=== PATIENT | female | born 1965 | race Caucasian/White ===

== ENCOUNTER 2019-07-31 10:53 | Emergency (ER) | payer MEDICAID, OTHER ==
[~2019-07-31] VITALS: Ht 172.7 cm; Wt 168.0 kg
[~2019-07-31 10:53] MED LIST: CHLO25TA2 PO; LEVO75TA PO; LISI-600 PO; ROSU5TAB12
[2019-07-31 11:53] LABS: BASOPHILS % (AUTO) 0.4 % (0-1); EOSINOPHILS # (AUTO) 0.1 X10'3 (0-0.9); EOSINOPHILS % (AUTO) 1.4 % (0-6); HEMATOCRIT 45.2 % (35.0-45.0); HEMOGLOBIN 15.3 g/dl (12.0-16.0); LYMPHOCYTES # (AUTO) 2.4 X10'3 (1.1-4.8); MEAN CORPUSCULAR HEMOGLOBIN 29.5 PG (27.0-31.0); MEAN CORPUSCULAR HGB CONC 33.9 g/dL (33.0-36.5); MEAN CORPUSCULAR VOLUME 86.9 FL (78-98); MEAN PLATELET VOLUME 8.1 FL (7.4-10.4); MONOCYTES # (AUTO) 0.4 X10'3 (0-0.9); MONOCYTES % (AUTO) 6.3 % (2-12); NEUTROPHILS # (AUTO) 3.3 X10'3 (1.8-7.7); NEUTROPHILS % (AUTO) 52.9 % (42-75); PLATELET COUNT 253 X10'3 (140-440); WHITE BLOOD COUNT 6.3 X10'3 (4.5-11.0)
[2019-07-31 12:15] LABS: ALANINE AMINOTRANSFERASE 50 U/L (12-78); ALBUMIN/GLOBULIN RATIO 0.9 (1.1-1.5); ALKALINE PHOSPHATASE 108 IU/L (46-116); ANION GAP 9 (8-16); ASPARTATE AMINO TRANSFERASE 31 U/L (10-37); BILIRUBIN,TOTAL 0.4 MG/DL (0.1-1.0); BLOOD UREA NITROGEN 15 MG/DL (7-18); BUN/CREATININE RATIO 14.4 (6.6-38.0); CALCIUM 9.7 MG/DL (8.5-10.1); CHLORIDE 106 MMOL/L (99-107); CREATININE 1.04 MG/DL (0.40-0.90); GLUCOSE 113 MG/DL (70-104); POTASSIUM 4.2 MMOL/L (3.5-5.1); SODIUM 142 MMOL/L (135-145); TOTAL CARBON DIOXIDE 27.5 MMOL/L (24-32); TOTAL PROTEIN 8.3 G/DL (6.4-8.2); eGFR 55 ML/MIN
[2019-07-31] MEDS ORDERED: diphenhydrAMINE 50 mg/ml inj IV ONE (12:40)
[2019-07-31] MEDS ORDERED: proCHLORperazine 10 MG/2 ml inj IV ONE (12:40)
[2019-07-31] MEDS ORDERED: cloNIDine 0.1 mg tablet PO ONE (12:45)
[2019-07-31 14:46] LABS: CLARITY,URINE CLEAR (Clear); COLOR,URINE YELLOW (Yellow); GLUCOSE, URINE NEGATIVE (Neg); KETONES,URINE NEGATIVE (Neg); LEUKOCYTE ESTERASE ,URINE NEGATIVE (Neg); NITRITES, URINE NEGATIVE (Neg); OCCULT BLOOD,URINE NEGATIVE (Neg); PROTEIN,URINE NEGATIVE (Neg); UROBILINOGEN,URINE 0.2 E.U/dL (0.2-1.0)
[2019-07-31 14:49] LABS: UA COLLECTION TYPE CLN CATCH MIDSTREAM
[2019-07-31 15:12] VITALS: BP 139/96
== END 2019-07-31 15:14 | disposition home or self-care (01) ==
LOC: ER 10:54
DX: I10 Essential (primary) hypertension (principal); G43.909 Migraine, unspecified, not intractable, without status migrainosus; R42 Dizziness and giddiness; E78.00 Pure hypercholesterolemia, unspecified; Z90.49 Acquired absence of other specified parts of digestive tract; Z98.890 Other specified postprocedural states; Z88.0 Allergy status to penicillin; Z79.899 Other long term (current) drug therapy
CPT/HCPCS: 36415; 71045; 80053; 81003; 83735; 83880; 84484; 85025; 93005; 96374; 96375; 99284; J0780; J1200

== ENCOUNTER 2021-03-15 08:53 | Day surgery (SDC) | payer BC, MEDICAID ==
[~2021-03-15] VITALS: Ht 172.7 cm; Wt 171.8 kg
[~2021-03-15 08:53] MED LIST changes: -LISI-600 PO; +LISI20TA28 PO
[2021-03-15] MEDS ORDERED: LIDOcaine Viscous 15ml cup ONE (08:57)
[2021-03-15] MEDS ORDERED: MIDAZolam 1 MG/ML 5ML VIAL ONE (08:57)
[2021-03-15] MEDS ORDERED: fentaNYL/PF 50MCG/1 ML 2ML syringe ONE (08:57)
[2021-03-15 09:10] VITALS: BP 124/76
[2021-03-15] MEDS ORDERED: LISD20CA PO (09:15)
[2021-03-15] MEDS ORDERED: VIT D3 PO (09:17)
[2021-03-15 09:59] VITALS: BP 108/69
[2021-03-15 10:09] VITALS: BP 104/67
[2021-03-15 10:19] VITALS: BP 100/62
[2021-03-15 10:29] VITALS: BP 108/64
== END 2021-03-15 10:50 | disposition home or self-care (01) ==
LOC: GI LAB 08:53
PROVIDERS: ATTEND Internal Medicine Gastroenterology
DX: Z01.818 Encounter for other preprocedural examination (principal); K29.50 Unspecified chronic gastritis without bleeding; E66.01 Morbid (severe) obesity due to excess calories; Z68.43 Body mass index [BMI] 50.0-59.9, adult; J45.909 Unspecified asthma, uncomplicated; I10 Essential (primary) hypertension; Z88.0 Allergy status to penicillin; Z79.899 Other long term (current) drug therapy
CPT/HCPCS: 43239; 99152; J2250; J3010; J7040; A4620

== ENCOUNTER 2023-05-19 08:50 | Emergency (ER) | payer BC, MEDICAID ==
[~2023-05-19] VITALS: Ht 172.7 cm; Wt 96.4 kg
[~2023-05-19 08:50] MED LIST changes: +LISD20CA PO; +VIT D3 PO
[2023-05-19 09:17] LABS: BILIRUBIN,URINE NEGATIVE (Neg); CLARITY,URINE SLIGHTLY CLOUDY (Clear); COLOR,URINE YELLOW (Yellow); GLUCOSE, URINE NEGATIVE (Neg); KETONES,URINE TRACE mg/dl (Neg); LEUKOCYTE ESTERASE ,URINE TRACE (Neg); NITRITES, URINE NEGATIVE (Neg); OCCULT BLOOD,URINE SMALL (Neg); PROTEIN,URINE TRACE mg/dl (Neg); URINE HCG NEGATIVE (NEG)
[2023-05-19 09:20] LABS: UA COLLECTION TYPE CLN CATCH MIDSTREAM
[2023-05-19 09:21] LABS: BACTERIA,URINE 1+ /HPF (Neg); MUCUS STRANDS NONE SEEN /LPF (Neg); RBC,URINE 0-2 /HPF (0-2); SQUAMOUS EPITHELIAL CELL,UR FEW /LPF (FEW); WBC,URINE 0-4 /HPF (0-4)
[2023-05-19 09:24] VITALS: BP 127/76; PULSE 82; RESP 18; TEMP 98.3; O2SAT 95
[2023-05-19 09:48] LABS: BASOPHILS % (AUTO) 0.4 % (0-1); EOSINOPHILS % (AUTO) 0.4 % (0-6); HEMATOCRIT 43.1 % (35.0-45.0); HEMOGLOBIN 14.4 g/dl (12.0-16.0); LYMPHOCYTES # (AUTO) 1.8 X10'3 (1.1-4.8); MEAN CORPUSCULAR HEMOGLOBIN 29.7 PG (27.0-31.0); MEAN CORPUSCULAR HGB CONC 33.5 g/dL (33.0-36.5); MEAN CORPUSCULAR VOLUME 88.5 FL (78-98); MONOCYTES # (AUTO) 0.3 X10'3 (0-0.9); MONOCYTES % (AUTO) 6.2 % (2-12); NEUTROPHILS # (AUTO) 3.3 X10'3 (1.8-7.7); PLATELET COUNT 223 X10'3 (140-440); RED BLOOD COUNT 4.86 X10'6 (4.20-5.60); RED CELL DISTRIBUTION WIDTH 12.8 % (11.5-14.5); WHITE BLOOD COUNT 5.5 X10'3 (4.5-11.0)
[2023-05-19 10:04] LABS: ALANINE AMINOTRANSFERASE 17 U/L (12-78); ALBUMIN 3.7 G/DL (3.4-5.0); ALBUMIN/GLOBULIN RATIO 1.1 (1.1-1.5); ALKALINE PHOSPHATASE 84 IU/L (46-116); ANION GAP 7 (8-16); ASPARTATE AMINO TRANSFERASE 15 U/L (10-37); BILIRUBIN,TOTAL 0.3 MG/DL (0.1-1.0); BLOOD UREA NITROGEN 19 MG/DL (7-18); CHLORIDE 107 MMOL/L (99-107); GLUCOSE 80 MG/DL (70-104); LIPASE 160 U/L (73-393); POTASSIUM 4.4 MMOL/L (3.5-5.1); SODIUM 143 MMOL/L (135-145); TOTAL CARBON DIOXIDE 29.3 MMOL/L (24-32); eCRCL 62 ML/MIN; eGFR 57 ML/MIN
[2023-05-19 10:11] LABS: CALCIUM 9.1 MG/DL (8.5-10.1)
[2023-05-19] MEDS ORDERED: CEFD300C3 PO (10:26)
== END 2023-05-19 10:51 | disposition home or self-care (01) ==
LOC: ER 08:50
DX: N39.0 Urinary tract infection, site not specified (principal); G43.909 Migraine, unspecified, not intractable, without status migrainosus; E78.00 Pure hypercholesterolemia, unspecified; I10 Essential (primary) hypertension; Z90.49 Acquired absence of other specified parts of digestive tract; Z98.891 History of uterine scar from previous surgery; Z88.0 Allergy status to penicillin; Z79.899 Other long term (current) drug therapy
CPT/HCPCS: 36415; 80053; 81001; 81025; 83690; 85025; 87088; 99283

== ENCOUNTER 2023-08-22 06:15 | Inpatient (IN) | payer BC, MEDICAID ==
[2023-08-18 11:57] LABS: BILIRUBIN,URINE NEGATIVE (Neg); CLARITY,URINE CLEAR (Clear); COLOR,URINE YELLOW (Yellow); GLUCOSE, URINE NEGATIVE (Neg); KETONES,URINE NEGATIVE (Neg); LEUKOCYTE ESTERASE ,URINE NEGATIVE (Neg); NITRITES, URINE NEGATIVE (Neg); OCCULT BLOOD,URINE NEGATIVE (Neg); PH,URINE 7.5 (4.8-8.0); PROTEIN,URINE NEGATIVE (Neg); UROBILINOGEN,URINE 0.2 E.U/dL (0.2-1.0)
[2023-08-18 12:10] LABS: UA COLLECTION TYPE CLN CATCH MIDSTREAM
[2023-08-18 12:37] LABS: BASOPHILS % (AUTO) 0.7 % (0-1); EOSINOPHILS % (AUTO) 0.5 % (0-6); LYMPHOCYTES # (AUTO) 2.1 X10'3 (1.1-4.8); LYMPHOCYTES % (AUTO) 43.3 % (21-51); MEAN CORPUSCULAR HEMOGLOBIN 28.9 PG (27.0-31.0); MEAN CORPUSCULAR HGB CONC 33.1 g/dL (33.0-36.5); MEAN CORPUSCULAR VOLUME 87.4 FL (78-98); MONOCYTES # (AUTO) 0.3 X10'3 (0-0.9); MONOCYTES % (AUTO) 5.9 % (2-12); NEUTROPHILS # (AUTO) 2.4 X10'3 (1.8-7.7); NEUTROPHILS % (AUTO) 49.6 % (42-75); PRE OP HEMATOCRIT 44.4 % (35.0-45.0); PRE OP HEMOGLOBIN 14.7 g/dL (12.0-16.0); PRE OP PLATELET COUNT 249 X10'3 (140-440); PRE OP WHITE BLOOD COUNT 4.8 10'3 (4.8-10.8); RED BLOOD COUNT 5.09 X10'6 (4.20-5.60); RED CELL DISTRIBUTION WIDTH 12.9 % (11.5-14.5)
[2023-08-18 13:00] LABS: ALBUMIN 3.9 G/DL (3.4-5.0); ALBUMIN/GLOBULIN RATIO 1.1 (1.1-1.5); ALKALINE PHOSPHATASE 82 IU/L (46-116); BLOOD UREA NITROGEN 10 MG/DL (7-18); BUN/CREATININE RATIO 10.8 (10.0-20.0); CALCIUM 9.3 MG/DL (8.5-10.1); CHLORIDE 104 MMOL/L (99-107); CREATININE 0.93 MG/DL (0.40-0.90); PRE OP ALT 21 U/L (30-65); PRE OP ANION GAP 7 (8-16); PRE OP AST 18 U/L (10-37); PRE OP BILIRUB, TOTAL 0.4 MG/DL (0.0-1.0); PRE OP GLUCOSE 92 MG/DL (70-104); PRE OP POTASSIUM 3.5 MMOL/L (3.4-5.1); PRE OP SODIUM 139 MMOL/L (135-145); THYROID STIMULATING HORMONE 2.87 ulU/ml (0.34-4.50); TOTAL CARBON DIOXIDE 27.9 MMOL/L (24-32); TOTAL PROTEIN 7.3 G/DL (6.4-8.2); eGFR 62 ML/MIN
[2023-08-18 13:11] LABS: PRE OP PROTIME 10.4 SECONDS (9.0-12.0)
[2023-08-22] VITALS (16 sets, daily range): BP systolic 87–131; BP diastolic 53–91; PULSE 63–85; RESP 10–18; TEMP 96.2–98; O2SAT 76–100
[~2023-08-22] VITALS: Ht 172.7 cm; Wt 105.7 kg
[~2023-08-22 06:15] MED LIST changes: +AMPH10TA23 PO; +BUPR-317 PO; +BUPR300T86 PO; -CHLO25TA2 PO; +CHOL500044 PO; +LEVO100T9 PO; -LEVO75TA PO; -LISD20CA PO; +LISD70CA PO; -LISI20TA28 PO; +MAGN400T56 PO; +MULT-955 PO; -ROSU5TAB12; +TIZA-205 PO; -VIT D3 PO; +clindamycin-Cleocin 900mg/D5W 50 ML IV ONE; +famotidine 20mg tablet PO ONE; +ringers solution, lacted 1,000 ML IV SCH
[2023-08-22] MEDS ORDERED: BUPIVACAINE liposomal/PF 13.3 MG/ML vial IM ONE (06:41)
[2023-08-22] MEDS ORDERED: BUPIVAcaine/PF 2.5mg/ml (0.25%) 10ml vial ONE (06:41)
[2023-08-22] MEDS ORDERED: fentaNYL /PF 50mcg/ml 5ml ampule ONE (08:06)
[2023-08-22] MEDS ORDERED: MIDAZolam 1 MG/ML 5ML VIAL ONE (08:07)
[2023-08-22] MEDS ORDERED: propofol inj 20 ML IV ONE (08:07)
[2023-08-22] MEDS ORDERED: rocuronium 10mg/ml inj IV ONE ×2 (08:08→11:57)
[2023-08-22] MEDS ORDERED: LIDOcaine 2% (20mg/ml) 5ml vial ONE (08:28)
[2023-08-22] MEDS ORDERED: sevoflurane 250ml liquid IH ONE (08:28)
[2023-08-22] MEDS ORDERED: NORepinephrine 8 MG in NS 250 ML BAG (32 mcg/ml) IV ONE (08:28)
[2023-08-22 09:15] LABS: ABG BASE EXCESS 1.7 mmol/L (-2.0-2.0); ABG HCO3 26.4 mmol/L (22.0-26.0); ABG OXYGEN SATURATION 87.8 % (94-97); ABG PCO2 (T) 41.7 mmHg (32.0-45.0); ABG PH (T) 7.419 (7.350-7.450); ABG PO2 (T) 51.9 mmHg (75.0-100.0); FCOHb 0.6 % (0.0-3.9); FHHb 12.1 % (0.0-5.0); FMetHb 0.3 % (0.0-1.5); MODE ROOM AIR; TOTAL HEMOGLOBIN 14.3 G/dl (12.0-16.0)
[2023-08-22] MEDS ORDERED: INDOCYANINE GREEN 25 MG/10 ML VIAL IV ONE (10:40)
[2023-08-22] MEDS ORDERED: ondansetron/PF 4mg/2ml inj ONE (11:57)
[2023-08-22] MEDS ORDERED: dexamethasone sod phosphate 4mg/ml inj. ONE (11:57)
[2023-08-22] MEDS ORDERED: acetaminophen 1,000mg/100ml IV 100 ML IV ONE (12:01)
[2023-08-22] MEDS ORDERED: acetaminophen 1,000mg/100ml IV 0 ML IV ONE (12:01)
[2023-08-22] MEDS ORDERED: sugammadex 200mg/2ml injection IV ONE (12:10)
[2023-08-22] MEDS ORDERED: proCHLORperazine 10 MG/2 ml inj IV PRN (12:25)
[2023-08-22] MEDS ORDERED: morphine 2 MG/ML inj. syringe IV PRN (12:25)
[2023-08-22] MEDS ORDERED: ringers solution, lacted 1,000 ML IV SCH (12:25)
[2023-08-22] MEDS ORDERED: ondansetron/PF 4mg/2ml inj IV PRN ×2 (12:25→13:05)
[2023-08-22] MEDS ORDERED: morphine 4 MG/ML inj SYRINge IV PRN (12:25)
[2023-08-22] MEDS ORDERED: meperidine/PF 25mg/ml syringe IV PRN ×3 (12:25)
[2023-08-22] MEDS ORDERED: magnesium hydroxide 30ml (MOM) UD suspension PO PRN (13:05)
[2023-08-22] MEDS ORDERED: metoclopramide 5 mg/ml inj IV PRN (13:05)
[2023-08-22] MEDS ORDERED: albuterol 2.5 MG/3 ML nebule NEB PRN (13:05)
[2023-08-22 13:18] LABS: ABG BASE EXCESS 0.2 mmol/L (-2.0-2.0); ABG HCO3 23.1 mmol/L (22.0-26.0); ABG OXYGEN SATURATION 97.9 % (94-97); ABG PH (T) 7.487 (7.350-7.450); ABG PO2 (T) 90.3 mmHg (75.0-100.0); ALLEN'S TEST POSITIVE; FCOHb 0.5 % (0.0-3.9); FHHb 2.1 % (0.0-5.0); FMetHb 0.3 % (0.0-1.5); FO2Hb 97.1 % (94-97); MODE MASK - CPAP; PATIENT TEMPERATURE 36.1; TOTAL HEMOGLOBIN 13.7 G/dl (12.0-16.0)
[2023-08-22] MEDS: clindamycin 600mg/D5W 50ml 50 ML IV SCH ×2 (14:56→20:42)
[2023-08-22] MEDS: potassium Cl 20mEq in D5-NS 1,000 ML IV SCH (14:56)
[2023-08-22] MEDS: ketorolac tromethamine 15mg/ml inj. IV SCH ×2 (14:56→19:44)
[2023-08-22] MEDS: morphine 2 MG/ML inj. syringe IV PRN ×2 (16:18→20:43)
[2023-08-22] MEDS: HYDROcodone/acetaminophen 10/325mg tab PO PRN ×2 (17:48→22:58)
[2023-08-22] MEDS: gabapentin 300mg capsule PO SCH (20:41)
[2023-08-22] MEDS: albuterol 2.5 MG/3 ML nebule NEB SCH (21:01)
[2023-08-23] VITALS (20 sets, daily range): BP systolic 70–98; BP diastolic 44–55; PULSE 61–101; RESP 11–18; TEMP 97.2–98.6; O2SAT 92–99
[2023-08-23] MEDS: potassium Cl 20mEq in D5-NS 1,000 ML IV SCH ×4 (01:35→22:47)
[2023-08-23] MEDS: ketorolac tromethamine 15mg/ml inj. IV SCH ×2 (02:00→08:00)
[2023-08-23] MEDS: morphine 2 MG/ML inj. syringe IV PRN ×2 (02:00→22:49)
[2023-08-23] MEDS: clindamycin 600mg/D5W 50ml 50 ML IV SCH ×4 (02:20→19:52)
[2023-08-23] MEDS ORDERED: albumin (Human) 5% 250ml 250 ML IV ONE ×3 (02:55→12:15)
[2023-08-23] MEDS: albuterol 2.5 MG/3 ML nebule NEB SCH ×6 (03:09→23:06)
[2023-08-23 07:05] LABS: BASOPHILS % (AUTO) 0.2 % (0-1); EOSINOPHILS % (AUTO) 0.1 % (0-6); HEMATOCRIT 35.9 % (35.0-45.0); HEMOGLOBIN 12.1 g/dl (12.0-16.0); LYMPHOCYTES # (AUTO) 1.9 X10'3 (1.1-4.8); LYMPHOCYTES % (AUTO) 24.1 % (21-51); MEAN CORPUSCULAR HEMOGLOBIN 29.7 PG (27.0-31.0); MEAN CORPUSCULAR HGB CONC 33.6 g/dL (33.0-36.5); MEAN CORPUSCULAR VOLUME 88.3 FL (78-98); MEAN PLATELET VOLUME 8.4 FL (7.4-10.4); MONOCYTES # (AUTO) 0.7 X10'3 (0-0.9); MONOCYTES % (AUTO) 8.9 % (2-12); NEUTROPHILS # (AUTO) 5.2 X10'3 (1.8-7.7); NEUTROPHILS % (AUTO) 66.7 % (42-75); PLATELET COUNT 191 X10'3 (140-440); RED BLOOD COUNT 4.07 X10'6 (4.20-5.60); RED CELL DISTRIBUTION WIDTH 12.9 % (11.5-14.5); WHITE BLOOD COUNT 7.8 X10'3 (4.5-11.0)
[2023-08-23 07:07] LABS: ALANINE AMINOTRANSFERASE 24 U/L (12-78); ALBUMIN 3.2 G/DL (3.4-5.0); ALBUMIN/GLOBULIN RATIO 1.1 (1.1-1.5); ALKALINE PHOSPHATASE 68 IU/L (46-116); ANION GAP 6 (8-16); ASPARTATE AMINO TRANSFERASE 31 U/L (10-37); BILIRUBIN,TOTAL 0.6 MG/DL (0.1-1.0); BLOOD UREA NITROGEN 16 MG/DL (7-18); BUN/CREATININE RATIO 14.3 (10.0-20.0); CALCIUM 8.3 MG/DL (8.5-10.1); CHLORIDE 103 MMOL/L (99-107); CREATININE 1.12 MG/DL (0.40-0.90); GLUCOSE 114 MG/DL (70-104); PHOSPHORUS 4.5 MG/DL (2.3-4.5); POTASSIUM 4.2 MMOL/L (3.5-5.1); SODIUM 137 MMOL/L (135-145); TOTAL CARBON DIOXIDE 27.8 MMOL/L (24-32); eCRCL 55 ML/MIN; eGFR 50 ML/MIN
[2023-08-23] MEDS: gabapentin 300mg capsule PO SCH ×2 (08:27→19:51)
[2023-08-23] MEDS: HYDROcodone/acetaminophen 10/325mg tab PO PRN ×2 (08:33→19:52)
[2023-08-23] MEDS: morphine 4 MG/ML inj SYRINge IV PRN ×2 (10:16→18:43)
[2023-08-23 14:11] LABS: HEMOGLOBIN A1C 5.6 % (4.5-6.2)
[2023-08-24] VITALS (19 sets, daily range): BP systolic 86–127; BP diastolic 58–80; PULSE 90–103; RESP 15–18; TEMP 97.6–98.2; O2SAT 92–99
[2023-08-24] MEDS: clindamycin 600mg/D5W 50ml 50 ML IV SCH ×4 (01:50→20:20)
[2023-08-24] MEDS: albuterol 2.5 MG/3 ML nebule NEB SCH ×6 (03:07→23:21)
[2023-08-24] MEDS: morphine 4 MG/ML inj SYRINge IV PRN ×4 (03:32→20:21)
[2023-08-24] MEDS: HYDROcodone/acetaminophen 10/325mg tab PO PRN ×4 (04:54→21:25)
[2023-08-24 06:24] LABS: BASOPHILS % (AUTO) 0.3 % (0-1); EOSINOPHILS % (AUTO) 0.7 % (0-6); HEMATOCRIT 36.6 % (35.0-45.0); HEMOGLOBIN 12.1 g/dl (12.0-16.0); LYMPHOCYTES # (AUTO) 1.9 X10'3 (1.1-4.8); LYMPHOCYTES % (AUTO) 33.2 % (21-51); MEAN CORPUSCULAR HEMOGLOBIN 29.5 PG (27.0-31.0); MEAN CORPUSCULAR HGB CONC 33.1 g/dL (33.0-36.5); MEAN CORPUSCULAR VOLUME 89.1 FL (78-98); MEAN PLATELET VOLUME 8.6 FL (7.4-10.4); MONOCYTES # (AUTO) 0.5 X10'3 (0-0.9); MONOCYTES % (AUTO) 8.2 % (2-12); NEUTROPHILS # (AUTO) 3.3 X10'3 (1.8-7.7); NEUTROPHILS % (AUTO) 57.6 % (42-75); PLATELET COUNT 182 X10'3 (140-440); RED CELL DISTRIBUTION WIDTH 13.2 % (11.5-14.5); WHITE BLOOD COUNT 5.8 X10'3 (4.5-11.0)
[2023-08-24 06:58] LABS: ALANINE AMINOTRANSFERASE 22 U/L (12-78); ALBUMIN 3.2 G/DL (3.4-5.0); ALBUMIN/GLOBULIN RATIO 0.9 (1.1-1.5); ALKALINE PHOSPHATASE 68 IU/L (46-116); ANION GAP 8 (8-16); ASPARTATE AMINO TRANSFERASE 16 U/L (10-37); BILIRUBIN,TOTAL 0.4 MG/DL (0.1-1.0); BLOOD UREA NITROGEN 15 MG/DL (7-18); BUN/CREATININE RATIO 16.5 (10.0-20.0); CHLORIDE 104 MMOL/L (99-107); CREATININE 0.91 MG/DL (0.40-0.90); GLUCOSE 92 MG/DL (70-104); MAGNESIUM 2.1 MG/DL (1.5-2.4); PHOSPHORUS 2.6 MG/DL (2.3-4.5); POTASSIUM 4.3 MMOL/L (3.5-5.1); SODIUM 139 MMOL/L (135-145); TOTAL CARBON DIOXIDE 27.2 MMOL/L (24-32); TOTAL PROTEIN 6.6 G/DL (6.4-8.2); eCRCL 68 ML/MIN; eGFR 63 ML/MIN
[2023-08-24] MEDS: gabapentin 300mg capsule PO SCH (07:25)
[2023-08-24] MEDS: potassium Cl 20mEq in D5-NS 1,000 ML IV SCH (15:33)
[2023-08-25] VITALS (13 sets, daily range): BP systolic 122–142; BP diastolic 71–87; PULSE 68–102; RESP 16–20; TEMP 97.2–98.7; O2SAT 90–100
[2023-08-25] MEDS: clindamycin 600mg/D5W 50ml 50 ML IV SCH ×3 (02:27→14:54)
[2023-08-25] MEDS: HYDROcodone/acetaminophen 10/325mg tab PO PRN ×3 (02:32→13:03)
[2023-08-25] MEDS: albuterol 2.5 MG/3 ML nebule NEB SCH ×4 (03:18→14:27)
[2023-08-25] MEDS: potassium Cl 20mEq in D5-NS 1,000 ML IV SCH ×2 (03:35→05:40)
[2023-08-25 06:28] LABS: BASOPHILS % (AUTO) 0.4 % (0-1); EOSINOPHILS # (AUTO) 0.2 X10'3 (0-0.9); EOSINOPHILS % (AUTO) 2.8 % (0-6); HEMATOCRIT 37.5 % (35.0-45.0); HEMOGLOBIN 12.4 g/dl (12.0-16.0); LYMPHOCYTES % (AUTO) 34.6 % (21-51); MEAN CORPUSCULAR HEMOGLOBIN 29.4 PG (27.0-31.0); MEAN CORPUSCULAR VOLUME 89.3 FL (78-98); MEAN PLATELET VOLUME 8.3 FL (7.4-10.4); MONOCYTES # (AUTO) 0.6 X10'3 (0-0.9); MONOCYTES % (AUTO) 9.7 % (2-12); NEUTROPHILS % (AUTO) 52.5 % (42-75); PLATELET COUNT 185 X10'3 (140-440); RED CELL DISTRIBUTION WIDTH 13.2 % (11.5-14.5); WHITE BLOOD COUNT 5.7 X10'3 (4.5-11.0)
[2023-08-25 07:00] LABS: ALANINE AMINOTRANSFERASE 23 U/L (12-78); ALBUMIN 2.9 G/DL (3.4-5.0); ALBUMIN/GLOBULIN RATIO 0.9 (1.1-1.5); ALKALINE PHOSPHATASE 74 IU/L (46-116); ANION GAP 5 (8-16); ASPARTATE AMINO TRANSFERASE 18 U/L (10-37); BILIRUBIN,TOTAL 0.4 MG/DL (0.1-1.0); BLOOD UREA NITROGEN 10 MG/DL (7-18); BUN/CREATININE RATIO 12.7 (10.0-20.0); CALCIUM 8.6 MG/DL (8.5-10.1); CHLORIDE 107 MMOL/L (99-107); CREATININE 0.79 MG/DL (0.40-0.90); GLUCOSE 103 MG/DL (70-104); MAGNESIUM 2.3 MG/DL (1.5-2.4); PHOSPHORUS 2.7 MG/DL (2.3-4.5); POTASSIUM 4.4 MMOL/L (3.5-5.1); SODIUM 141 MMOL/L (135-145); TOTAL CARBON DIOXIDE 28.9 MMOL/L (24-32); TOTAL PROTEIN 6.1 G/DL (6.4-8.2); eCRCL 78 ML/MIN; eGFR 75 ML/MIN
== END 2023-08-25 19:40 | disposition home or self-care (01) | DRG 164 ==
LOC: PAS IN 06:15 → PCU 3S 13:58
PROVIDERS: ADMIT Surgery; ATTEND Surgery
PROC: 07BD4ZX Excision of Aortic Lymphatic, Percutaneous Endoscopic Approach, Diagnostic (ICD-10-PCS; 2023-08-22)
PROC: 07B74ZX Excision of Thorax Lymphatic, Percutaneous Endoscopic Approach, Diagnostic (ICD-10-PCS; 2023-08-22)
PROC: 8E0W4CZ Robotic Assisted Procedure of Trunk Region, Percutaneous Endoscopic Approach (ICD-10-PCS; 2023-08-22)
PROC: 0W9930Z Drainage of Right Pleural Cavity with Drainage Device, Percutaneous Approach (ICD-10-PCS; 2023-08-22)
PROC: 0BBF4ZZ Excision of Right Lower Lung Lobe, Percutaneous Endoscopic Approach (ICD-10-PCS; principal; 2023-08-22 08:28)
DX: R91.8 Other nonspecific abnormal finding of lung field (principal); J95.811 Postprocedural pneumothorax
CPT/HCPCS: Z7506; Z7508; 36415; 36600; 71045; 71046; 80053; 81003; 82803; 82948; 83036; 83735; 84100; 84443; 85018; 85025; 85610; 85730; 86885; 86900; 86901; 87070; 87075; 87081; 93005; 94640; 94760; 97116; 97161; 97530; A4615; A4618; A6212; A6258; A6449; A7000; A7048; C1758; C9290; G0378; J0131; J1100; J1885; J2250; J2270; J2405; J2704; J3010; J3480; J3490; J7120; P9045

== ENCOUNTER 2023-10-21 10:54 | Emergency (ER) | payer BC, MEDICAID ==
[~2023-10-21 10:54] MED LIST changes: -clindamycin-Cleocin 900mg/D5W 50 ML IV ONE; -famotidine 20mg tablet PO ONE; -ringers solution, lacted 1,000 ML IV SCH
[2023-10-21 11:01] VITALS: TEMP 98
[2023-10-21 11:25] LABS: BASOPHILS % (AUTO) 0.4 % (0-1); EOSINOPHILS % (AUTO) 0.4 % (0-6); HEMATOCRIT 44.5 % (35.0-45.0); HEMOGLOBIN 14.7 g/dl (12.0-16.0); LYMPHOCYTES # (AUTO) 2.5 X10'3 (1.1-4.8); MEAN CORPUSCULAR HEMOGLOBIN 29.2 PG (27.0-31.0); MEAN CORPUSCULAR HGB CONC 33.2 g/dL (33.0-36.5); MEAN CORPUSCULAR VOLUME 87.9 FL (78-98); MEAN PLATELET VOLUME 8.1 FL (7.4-10.4); MONOCYTES # (AUTO) 0.3 X10'3 (0-0.9); MONOCYTES % (AUTO) 6.6 % (2-12); NEUTROPHILS # (AUTO) 2.4 X10'3 (1.8-7.7); NEUTROPHILS % (AUTO) 45.6 % (42-75); PLATELET COUNT 234 X10'3 (140-440); RED BLOOD COUNT 5.06 X10'6 (4.20-5.60); WHITE BLOOD COUNT 5.3 X10'3 (4.5-11.0)
[2023-10-21 11:40] LABS: ALBUMIN 4.2 G/DL (3.4-5.0); ANION GAP 6 (8-16); APTT 29 SECONDS (22-32); BLOOD UREA NITROGEN 13 MG/DL (7-18); BUN/CREATININE RATIO 12.5 (10.0-20.0); CALCIUM 9.9 MG/DL (8.5-10.1); CHLORIDE 107 MMOL/L (99-107); CREATININE 1.04 MG/DL (0.40-0.90); GLUCOSE 96 MG/DL (70-104); POTASSIUM 4.6 MMOL/L (3.5-5.1); PROTHROMBIN TIME 10.8 SECONDS (9.0-12.0); SODIUM 144 MMOL/L (135-145); TOTAL CARBON DIOXIDE 30.8 MMOL/L (24-32); eGFR 54 ML/MIN
[2023-10-21] MEDS ORDERED: valproate sod inj 500 MG in normal saline 50ml IV soln 50 ML IV ONE (14:30)
[2023-10-21] MEDS: ondansetron/PF 4mg/2ml inj IV ONE ×2 (15:40→17:49)
[2023-10-21] MEDS: magnesium 2GM in 50ml NS 50 ML IV ONE (15:45)
[2023-10-21] MEDS: valproate sod inj 500 MG in normal saline 50ml IV soln 45 ML IV ONE (15:45)
[2023-10-21 17:13] VITALS: O2SAT 95
[2023-10-21] MEDS: morphine 4 MG/ML inj SYRINge IV ONE (17:48)
[2023-10-21 18:02] VITALS: BP 123/95; PULSE 98
[2023-10-21 18:10] VITALS: RESP 12
[2023-10-21] MEDS ORDERED: iohexol 350MG/ML 100ml bottle IV ONE (19:40)
== END 2023-10-21 22:37 | disposition home or self-care (01) ==
LOC: ER 10:55
DX: G43.909 Migraine, unspecified, not intractable, without status migrainosus (principal); R07.89 Other chest pain; R42 Dizziness and giddiness; E78.00 Pure hypercholesterolemia, unspecified; I10 Essential (primary) hypertension; Z88.0 Allergy status to penicillin; Z79.899 Other long term (current) drug therapy; Z98.890 Other specified postprocedural states; Z90.49 Acquired absence of other specified parts of digestive tract
CPT/HCPCS: 36415; 70450; 71045; 71275; 80048; 82948; 85025; 85610; 85730; 93005; 96365; 96368; 96375; 96376; 99285; J2270; J2405; J3475; J3490; Q9967

== ENCOUNTER 2024-03-05 16:26 | Emergency (ER) | payer BC, MEDICAID ==
[~2024-03-05] VITALS: Ht 172.7 cm; Wt 109.0 kg
[~2024-03-05 16:26] MED LIST changes: +BUPR-564 PO; -BUPR300T86 PO
[2024-03-05 17:56] VITALS: BP 142/98; PULSE 73; RESP 16; TEMP 98.2; O2SAT 98
== END 2024-03-05 17:58 | disposition home or self-care (01) ==
LOC: ER 16:27
DX: I83.91 Asymptomatic varicose veins of right lower extremity (principal); I10 Essential (primary) hypertension; E78.00 Pure hypercholesterolemia, unspecified; F41.9 Anxiety disorder, unspecified; Z98.890 Other specified postprocedural states; Z90.49 Acquired absence of other specified parts of digestive tract; Z88.0 Allergy status to penicillin; Z79.899 Other long term (current) drug therapy; Z79.2 Long term (current) use of antibiotics
CPT/HCPCS: 73564; 93971; 99284